=== PATIENT | male | born 2005 | race African-American/Black ===

== ENCOUNTER 2025-05-31 10:41 | Emergency (ER) | payer SELFPAY ==
[~2025-05-31] VITALS: Ht 185.4 cm; Wt 90.0 kg
[2025-05-31 10:49] VITALS: O2SAT 100
[2025-05-31 11:29] VITALS: TEMP 37; O2SAT 99
[2025-05-31 11:37] VITALS: BP 133/96; PULSE 85; RESP 18
[2025-05-31] MEDS: OXYCODONE HCL/ACETAMINOPHEN 5/325MG TABLET PO ONE (11:37)
[2025-05-31] MEDS ORDERED: IBUP-2028 PO (13:52)
[2025-05-31] MEDS ORDERED: OXYC-100 PO (13:52)
== END 2025-05-31 14:37 | disposition home or self-care (01) ==
LOC: ER 10:41
DX: S91.332A Puncture wound without foreign body, left foot, initial encounter (principal); S92.512A Displaced fracture of proximal phalanx of left lesser toe(s), initial encounter for closed fracture; W34.00XA Accidental discharge from unspecified firearms or gun, initial encounter; Y93.89 Activity, other specified; Y92.89 Other specified places as the place of occurrence of the external cause; Y99.8 Other external cause status
CPT/HCPCS: 73620; 99283